=== PATIENT | male | born 1960 | race Caucasian/White ===

== ENCOUNTER 2016-11-12 22:01 | Emergency (ER) | payer OTHER | END 2016-11-12 23:54 | disposition left against medical advice (07) | LOC: CED 22:01 | DX: Z53.21 Procedure and treatment not carried out due to patient leaving prior to being seen by health care provider (principal) ==

== ENCOUNTER 2016-11-13 12:34 | Emergency (ER) | payer OTHER ==
--- NOTE | ~2016-11-13 | US115 ---
[facility] A Service [facility] RADIOLOGY TEXT RESULTS PATIENT: LEIGH BATEMAN LOCATION: [facility] : 62 UNIT #: [id number] AGE: [address]: Deven Barreto MD SEX: M ORDER DR: [id number] [facility] [address] [place], [place] [address] [id number] MR#: [id number] Acc #: [id number] NAME: LEIGH BATEMAN : 1960 SEX: M STUDY DATE/TIME: 11/13/2016 14:49 UNIT: [facility] ROOM: STUDY DESCRIPTION: US Scrotum and Contents Attending Physician: Deven Barreto M.D. Ordering Physician: Deven Barreto M.D. Primary Care Physician: Enoc Easley M.D. MEDICAL IMAGING REPORT This report is preliminary unless electronic signature is present EXAM Ultrasound of the scrotum and contents HISTORY Scrotal pain for 3 days. TECHNIQUE Real-time ultrasonography scrotal contents performed. Parham-scale color Doppler, Doppler pulse-wave interrogation utilized. FINDINGS The right testis measures 3.31 cm x 2.28 cm x 3.14 cm. Normal in contour. Slightly heterogeneous in echotexture with no focal mass lesions seen. Arterial and venous flow present. The epididymis unremarkable. Small right hydrocele. Left testis measures 3.45 cm x 2.56 cm x 2.96 cm. Normal in contour. Slightly heterogeneous echotexture with no focal mass lesion suggested. Arterial and venous flow in the left testis. The left epididymis is unremarkable. No abnormal left-sided fluid collections. IMPRESSION 1. The bilateral testes are normal in size and contour with arterial and venous flow noted bilaterally. 2. Very slightly heterogeneous echotexture of the bilateral testes. No focal mass lesions are seen. 3. Bilateral epididymis unremarkable. 4. Small right hydrocele. Dictated by... Lamont Valdovinos M.D. [facility] A Service [facility] RADIOLOGY TEXT RESULTS PATIENT: LEIGH BATEMAN LOCATION: [facility] : 62 UNIT #: [id number] AGE: [address]: Deven Barreto MD SEX: M ORDER DR: THIS IS AN ELECTRONICALLY VERIFIED REPORT Lamont Valdovinos M.D. at 11/14/2016 5:58 PM Melvin TD: 11/13/2016 20:57 JOB #: [id number] MEDICAL IMAGING REPORT Page 1 of 1 COPY
[2016-11-13 12:58] LABS: BASOPHIL% 0.7 % (0-2.5); EOSINOPHIL# 0.3 X10e3 (0-0.7); EOSINOPHIL% 4.3 % (0.0-7.0); HEMOGLOBIN 15.5 gm/dL (13.0-16.0); LYMPHOCYTE# 1.3 X10e3 (1.0-3.5); LYMPHOCYTE% 19.7 % (17.0-45.0); MEAN CELL VOLUME 87.8 FL (83-96); MEAN CORPUSCULAR HGB CONC 33.1 g/dL (30-36); MEAN PLATELET VOLUME 7.2 FL (6.5-11.5); MONOCYTE# 0.6 X10e3 (0-1.0); MONOCYTE% 9.6 % (3.0-12.0); NEUTROPHIL# 4.4 X10e3 (1.5-7.1); NEUTROPHIL% 65.7 % (40-75); PLATELET COUNT 252 X10e3 (140-420); RED BLOOD COUNT 5.35 X10e (3.90-5.60); WHITE BLOOD COUNT 6.7 X10e3 (4.0-10.5)
[2016-11-13 13:04] LABS: DIFF IND NO
[2016-11-13 13:27] LABS: ALBUMIN SERUM 3.7 g/dL (3.5-5.0); BILIRUBIN, DIRECT 0.1 mg/dL (0.0-0.2); BILIRUBIN,INDIRECT 0.5 mg/dL (0.0-0.9); BILIRUBIN,TOTAL 0.6 mg/dL (0.2-2.0); BUN/CREATININE RATIO 18.88; CALCIUM SERUM 9.2 mg/dL (8.4-10.2); CREATININE SERUM 0.9 mg/dL (0.6-1.4); GLOM FILT RATE Estimated 95.8 mL/min (>60); PROTEIN TOTAL SERUM 6.2 g/dL (6.0-8.3)
[2016-11-13 14:37] LABS: URINE SOURCE CLEAN CATCH
[2016-11-13 14:49] LABS: URINE APPEARANCE CLOUDY; URINE BILIRUBIN NEG (NEG); URINE BLOOD NEG (NEG); URINE COLOR DK YELLOW; URINE GLUCOSE NEG (NEG); URINE KETONE NEG (NEG); URINE LEUKOCYTE ESTERASE TRACE (NEG); URINE NITRATE NEG (NEG); URINE PROTEIN TRACE (NEG); URINE SPECIFIC GRAVITY 1.015 (1.003-1.035)
[2016-11-13 14:54] LABS: URBCS1 AUWI 0-2 /[HPF] (0-2); URINE BACTERIA AUWI NEG (NEGATIVE); URINE SQUAMOUS EPITHELIAL CELL NONE SEEN /[HPF]
[2016-11-13 14:59] LABS: CULTURE INDICATED? NO
[2016-11-16 00:05] LABS: CHLAMYDIA TRACH Not Detected (Not Detected); N GONOR Not Detected (Not Detected)
== END 2016-11-13 16:20 | disposition home or self-care (01) ==
LOC: CED 12:34
PROVIDERS: Emergency Medicine
DX: N41.0 Acute prostatitis (principal); F17.200 Nicotine dependence, unspecified, uncomplicated
CPT/HCPCS: 36415; 76870; 80048; 80076; 81003; 83690; 85025; 87491; 87591; 93976; 96374; 99284; J2270